=== PATIENT | male | born 1995 | race African-American/Black ===

== ENCOUNTER 2024-11-24 11:15 | Outpatient (AMB) | payer OTHER, SELFPAY ==
--- NOTE | 2024-11-24 11:29 | MHC.OFFVIS ---
Vital Signs 11/24/24 11:30 Height 5 ft 7 in Weight 238 lb BMI 37.3 Intake Visit Reasons: Follow UP RT ankle injury 09/26/24 Intake Note: Brandyn is a 29 year old male who presents today as a new patient for an evaluation of his RT ankle fracture. He mentions his injury occurred on 09/26/24 while he was at work. 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 Patient was seen at [facility] and was provided boots and crutches. He states that his ankle is slightly better however when he is driving at work he will feel a strain in his ankle. Patient reports he has not tried OTC pain medication or PT at this time. Allergies No Known Allergies Allergy (Verified 11/24/24 11:31) HPI HPI Follow UP RT ankle injury 09/26/24: Details: The patient is a 29-year-old male presenting for evaluation of a right ankle/foot fracture. He mentions his injury occurred on 09/26/24 while he was at work. 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 Patient was seen at [facility] and was provided boots and crutches by Dr. Pantoja who identified a avulsion fracture of the right navicular. The patient had returned to work shortly after. He has since been weight-bearing in a lace-up ankle brace at work however he is in a using no support at home. He denies any pain to his foot and ankle at this time, denies any difficulty walking. The patient has been experiencing a strained feeling and occasional cramping to the top of his foot, particularly after prolonged periods of activity. 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 Review of Systems Const All systems reviewed & are unremarkable except as noted in HPI and below Physical Exam Vital Signs: BMI result Body Mass Index 37.3 Extrem Other: *Bilateral Lower Extremity Focused Foot/Ankle Exam Vascular: DP/PT 2/4, CFT<3s to digits, TG warm to cool, no pedal edema, pedal hair present Derm: No Ecchymosis present to the right foot and ankle. Neuro: Protective sensation grossly intact to bilateral lower extremities. Negative Tinel sign to the intermediate dorsal cutaneous nerve. Msk: No pain on palpation along the right lateral ankle ligaments No Pain on palpation along the deltoid ligament right ankle No Pain on palpation along the syndesmosis right ankle Negative anterior drawer sign of the right ankle Negative talar tilt test of the right ankle Negative stress eversion of the right ankle Negative stress external rotation of the right ankle No pain on palpation along the navicular bone or along the tn joint. No pain along the Lisfranc ligament or tarsometatarsal joints. Negative piano harris test right foot metatarsals 1,2, 4 and 5. Mild positive piano harris test right 3rd metatarsal head. Deformities: No evidence of hammertoes, bunions, Charcot changes, or other structural abnormalities. Gait: Protected Weight-bearing in lace-up ankle brace Assessment & Plan Assessment & Plan (1) Navicular fracture of ankle: Code(s): S92.253A - Displaced fracture of navicular [scaphoid] of unspecified foot, initial encounter for closed fracture Category: Medical Qualifiers: Encounter type: initial encounter Fracture type: closed Fracture alignment: nondisplaced Laterality: right Qualified Code(s): S92.254A - Nondisplaced fracture of navicular [scaphoid] of right foot, initial encounter for closed fracture Plan: Rx right foot x-rays to evaluate healing of right foot navicular fracture. The patient has not had new x-rays in the past 2 months since his initial injury. Due to the clinical exam findings, the patient is allowed to transition to weightbearing without an ankle brace as tolerated. He was recommended continuing use of his brace at work for 1 more month. Referred to Physical Therapy. Patient may continue to work as tolerated. However we will need new x-rays to provide clearance for full duty without restrictions. He was instructed to avoid any high impact activities until his next visit. Follow up in 1 week with new x-rays. Orders: Orders PT Evaluation and Treatment Today S92.253A - Displaced fracture of navicular [scaphoid] of unspecified foot, initial encounter for closed fracture XR foot RT min 3V Today S92.253A - Displaced fracture of navicular [scaphoid] of unspecified foot, initial encounter for closed fracture XR ankle RT min 3V Today S92.253A - Displaced fracture of navicular [scaphoid] of unspecified foot, initial encounter for closed fracture Coding Level of Care Code New Pt Level 3 (47479) Diagnoses Closed nondisplaced fracture of navicular bone of right foot, initial encounter S92.254A Encounter type: initial encounter Fracture type: closed Fracture alignment: nondisplaced Laterality: right Time Spent (min) 30
[2024-11-24 11:30] VITALS: BMI 37.3
== END 2024-11-24 11:49 | disposition home or self-care (01) ==
PROVIDERS: Visit Provider Student in an Organized Health Care Education/Training Program
DX: S92.254A Nondisplaced fracture of navicular [scaphoid] of right foot, initial encounter for closed fracture (principal)
CPT/HCPCS: 99203

== ENCOUNTER 2024-11-24 11:15 | Outpatient (REF) | payer OTHER, BC, SELFPAY ==
--- NOTE | ~2024-11-24 | XR_ITS ---
EXAMINATION: XR FOOT, RIGHT CLINICAL INFORMATION: S92.253A - Displaced fracture of navicular [scaphoid] of unspecified foot... COMPARISON: None available. TECHNIQUE: AP, lateral, and oblique views of the right foot. FINDINGS: No fractures are identified. Joint spaces are preserved. There is no joint diastases. There is a small Achilles tendon calcaneal spur XR/XR foot RT min 3V IMPRESSION: No visible fracture. The history states that there is a displaced fracture of the navicular bone. If this is true, consider CT of the foot to better evaluate. No fracture is identified by x-ray. Electronically signed by: Fernando Navas MD 11/24/2024 12:56 PM EDT
--- NOTE | ~2024-11-24 | XR_ITS ---
EXAMINATION: XR ANKLE, right CLINICAL INFORMATION: S92.253A - Displaced fracture of navicular [scaphoid] of unspecified foot... COMPARISON: None available. TECHNIQUE: AP, lateral, and mortise views lower extremity joint, ankle. FINDINGS: Ankle mortise is congruent. There is no widening of the syndesmosis. Talar dome is intact. There is a small Achilles tendon calcaneal enthesophyte(s). XR/XR ankle RT min 3V IMPRESSION: Unremarkable ankle x-ray. Specifically, no navicular bone fracture is identified. Electronically signed by: Fernando Navas MD 11/24/2024 12:59 PM EDT
--- OUTSIDE RECORDS SUMMARY | 2024-11-24 15:07 | XMS_ITS ---
Author Name [facility] Organization Unknown Care Team Organization Name Special[facility] Phone Email Start Date End Da te [employer] 12/17/2021 0 10/21/2023
== END 2024-11-24 11:16 | disposition home or self-care (01) ==
LOC: HO.XRAY 11:15
PROVIDERS: PCP Internal Medicine; Visit Provider Student in an Organized Health Care Education/Training Program
DX: S92.254A Nondisplaced fracture of navicular [scaphoid] of right foot, initial encounter for closed fracture (principal)
CPT/HCPCS: 73610; 73630; 99202

== ENCOUNTER → 2024-11-24 12:18 | Outpatient (BNV) | payer OTHER, SELFPAY | PROVIDERS: PCP Internal Medicine; Visit Provider Radiology Diagnostic Radiology | DX: M77.51 Other enthesopathy of right foot and ankle (principal) | CPT/HCPCS: 73610; 73630 ==

== ENCOUNTER 2024-12-03 09:17 | Outpatient (AMB) | payer OTHER, SELFPAY ==
--- NOTE | 2024-12-03 09:32 | A.OFFVIS_ITS ---
Vital Signs 12/03/24 09:34 Height 5 ft 7 in Weight 238 lb BMI 37.3 Intake Visit Reasons: Follow UP RT ankle injury 09/26/24 Intake Note: Brandyn is a 29 year old male who presents today for a follow up on his navicular fracture of right ankle. Pt was seen on 11/24/24 where he was referred to PT and was advised to transition to weight bearing without ankle brace as tolerated. Patient states he currently has not heard from PT and does not have an appointment scheduled. He mentions he does not have any pain at this time and he will only use the brace during work hours. Foot X-ray IMPRESSION: No visible fracture. The history states that there is a displaced fracture of the navicular bone. If this is true, consider CT of the foot to better evaluate. No fracture is identified by x-ray. Right ankle X-ray IMPRESSION: Unremarkable ankle x-ray. Specifically, no navicular bone fracture is identified. Allergies No Known Allergies Allergy (Verified 12/03/24 09:35) HPI HPI Follow UP RT ankle injury 09/26/24: Details: The patient is a 29-year-old male presenting for 1 week follow up evaluation of a right ankle/foot fracture, x-ray review. He is still wearing his ankle brace. The patient is no longer experiencing the strain/cramping on top of his foot. He is still not has returned to high impact activities. History: Injury occurred on 09/26/24 while he was at work. 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 Patient was seen at [facility] and was provided boots and crutches by Dr. Pantoja who identified a avulsion fracture of the right navicular. The patient had returned to work shortly after. He used a lace-up ankle brace at work. He denies any pain to his foot and ankle at this time, denies any difficulty walking. 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 Review of Systems Const All systems reviewed & are unremarkable except as noted in HPI and below Physical Exam Vital Signs: BMI result Body Mass Index 37.3 Extrem Other: *Bilateral Lower Extremity Focused Foot/Ankle Exam Vascular: DP/PT 2/4, CFT<3s to digits, TG warm to cool, no pedal edema, pedal hair present Derm: No Ecchymosis present to the right foot and ankle. Neuro: Protective sensation grossly intact to bilateral lower extremities. Negative Tinel sign to the intermediate dorsal cutaneous nerve. Msk: No pain on palpation along the right lateral ankle ligaments No Pain on palpation along the deltoid ligament right ankle No Pain on palpation along the syndesmosis right ankle Negative anterior drawer sign of the right ankle Negative talar tilt test of the right ankle Negative stress eversion of the right ankle Negative stress external rotation of the right ankle No pain on palpation along the navicular bone or along the tn joint. No pain along the Lisfranc ligament or tarsometatarsal joints. Negative piano harris test right foot metatarsals 1,2, 3, 4 and 5. Negative single and bilateral heel rise. Negative piano harris test right 3rd metatarsal head. Deformities: No evidence of hammertoes, bunions, Charcot changes, or other structural abnormalities. Gait: Protected Weight-bearing in lace-up ankle brace Results Reviewed Results Reviewed: Podiatry X-ray Read: 11/24/2024 X-ray right foot 3 views (AP, MO, Lateral) reviewed which shows interval healing, 80% ossified dorsal distal navicular avulsion fragment.. Bone density is within normal limits. Normal anatomy. No evidence of swelling, foreign body, or calcifications. I personally reviewed the imaging and my findings are listed above. Podiatry X-ray Read: 11/24/2024 X-ray right ankle 3 views (AP, Mortise, Lateral) reviewed which shows no fractures, dislocations, osteochondral defects, or gross abnormalities. Anatomic alignment of the tibiotalar joint. Bone density is within normal limits. No evidence of swelling, foreign body, or calcifications. I personally reviewed the imaging and my findings are listed above. Assessment & Plan Assessment & Plan (1) Navicular fracture of ankle: Code(s): S92.253A - Displaced fracture of navicular [scaphoid] of unspecified foot, initial encounter for closed fracture Category: Medical Qualifiers: Encounter type: initial encounter Fracture type: closed Fracture alignment: nondisplaced Laterality: right Qualified Code(s): S92.254A - Nondisplaced fracture of navicular [scaphoid] of right foot, initial encounter for closed fracture Plan: * Right foot and ankle x-rays reviewed. * Discontinue lace-up ankle brace. * The patient is cleared to slowly increase high impact activities. * Referred to Physical Therapy. * Follow up as needed Orders: Orders PT Evaluation and Treatment Today S92.254A - Nondisplaced fracture of navicular [scaphoid] of right foot, initial encounter for closed fracture Coding Level of Care Code Est Pt Level 3 (33769) Diagnoses Closed nondisplaced fracture of navicular bone of right foot, initial encounter S92.254A Encounter type: initial encounter Fracture type: closed Fracture alignment: nondisplaced Laterality: right Time Spent (min) 30
[2024-12-03 09:34] VITALS: BMI 37.3
== END 2024-12-03 10:36 | disposition home or self-care (01) ==
LOC: HO.HPODS 09:18
PROVIDERS: Visit Provider Student in an Organized Health Care Education/Training Program
DX: S92.254A Nondisplaced fracture of navicular [scaphoid] of right foot, initial encounter for closed fracture (principal)
CPT/HCPCS: 99214

== ENCOUNTER → 2024-12-03 09:17 | Outpatient (BNVA) | payer OTHER, BC, SELFPAY | PROVIDERS: Visit Provider Student in an Organized Health Care Education/Training Program | DX: S92.251D Displaced fracture of navicular [scaphoid] of right foot, subsequent encounter for fracture with routine healing (principal) | CPT/HCPCS: 99212 ==